=== PATIENT | female | born 1965 | race Caucasian/White ===

== ENCOUNTER 2021-02-14 17:23 | Inpatient (IN) | payer BC ==
[~2021-02-14] VITALS: Ht 177.8 cm; Wt 139.0 kg
[2021-02-15 00:34] LABS: RED BLOOD COUNT 4.08 M/UL (4.00-5.10); WHITE BLOOD COUNT 7.9 K/UL (4.5-11.0)
[2021-02-15 01:01] LABS: BUN/CREATININE RATIO 22 (0-10)
--- NOTE | 2021-02-15 02:30 | NUR ---
0030 ORDERS RECEIVED FROM KATTY TO PARALYZE AND PRONE PT, ALSO CVL PLACEMENT. NIKKO AHMADI REPORTS HE "DOESN'T DO THOSE." CALLED ER PHYSICIAN. ER MD TO BEDSIDE TO ATTEMPT PLACEMENT. CVL CONSENT PLACED ON CHART. TELEPHONE CONSENT RECEIVED FROM . 0100 MULTIPLE ATTEMPTS BY ER MD FOR CVL PLACEMENT. UNABLE TO PLACE. 0125 DR GOMEZ CALLED IN FOR CVL PLACEMENT. RIJ CVL PLACED SUCCESSFULLY. CXR OBTAINED. VERBAL OKAY TO USE CVL PER DR GOMEZ.
[2021-02-15] MEDS ORDERED: LEXAPRO20 MG PO (14:59)
[2021-02-15] MEDS ORDERED: PROTONIX40 MG PO (14:59)
[2021-02-15] MEDS ORDERED: FLOVENT 110 MC7.9 GM INH (14:59)
[2021-02-15] MEDS ORDERED: LEVOTHYROXINE88 MCG PO (15:00)
[2021-02-15] MEDS ORDERED: LISINOPRIL10 MG PO (15:00)
--- NOTE | 2021-02-15 22:39 | NUR ---
2200 RT AND MULTIPLE RNs AT BEDSIDE. PT UNPRONED.
[2021-02-16 04:52] LABS: RED BLOOD COUNT 4.14 M/UL (4.00-5.10)
[2021-02-16 04:54] LABS: WHITE BLOOD COUNT 10.7 K/UL (4.5-11.0)
[2021-02-16 05:42] LABS: BUN/CREATININE RATIO 34 (0-10)
[2021-02-17 05:28] LABS: HEMOGLOBIN 12.5 gm/dl (12.3-15.3); RED BLOOD COUNT 4.27 M/UL (4.00-5.10)
[2021-02-17 05:31] LABS: WHITE BLOOD COUNT 14.7 K/UL (4.5-11.0)
[2021-02-17 05:53] LABS: BUN/CREATININE RATIO 45 (0-10)
[2021-02-18 05:39] LABS: HEMOGLOBIN 12.8 gm/dl (12.3-15.3); RED BLOOD COUNT 4.4 M/UL (4.00-5.10); WHITE BLOOD COUNT 17.7 K/UL (4.5-11.0)
[2021-02-18 06:16] LABS: BUN/CREATININE RATIO 48 (0-10)
[2021-02-19 04:54] LABS: HEMOGLOBIN 12.3 gm/dl (12.3-15.3); RED BLOOD COUNT 4.23 M/UL (4.00-5.10); WHITE BLOOD COUNT 13.7 K/UL (4.5-11.0)
[2021-02-19 05:23] LABS: BUN/CREATININE RATIO 45 (0-10)
[2021-02-20 05:33] LABS: HEMOGLOBIN 12.9 gm/dl (12.3-15.3); RED BLOOD COUNT 4.45 M/UL (4.00-5.10); WHITE BLOOD COUNT 15.6 K/UL (4.5-11.0)
[2021-02-20 05:52] LABS: BUN/CREATININE RATIO 55 (0-10)
[2021-02-21 04:52] LABS: HEMOGLOBIN 12.2 gm/dl (12.3-15.3); RED BLOOD COUNT 4.2 M/UL (4.00-5.10); WHITE BLOOD COUNT 15.8 K/UL (4.5-11.0)
[2021-02-21 05:34] LABS: BUN/CREATININE RATIO 53 (0-10)
[2021-02-22 05:48] LABS: HEMOGLOBIN 12.7 gm/dl (12.3-15.3); RED BLOOD COUNT 4.45 M/UL (4.00-5.10); WHITE BLOOD COUNT 17.9 K/UL (4.5-11.0)
[2021-02-22 06:06] LABS: BUN/CREATININE RATIO 58 (0-10)
[2021-02-23 05:18] LABS: HEMOGLOBIN 12.1 gm/dl (12.3-15.3); RED BLOOD COUNT 4.15 M/UL (4.00-5.10)
[2021-02-23 05:23] LABS: WHITE BLOOD COUNT 11.4 K/UL (4.5-11.0)
[2021-02-23 05:42] LABS: BUN/CREATININE RATIO 61 (0-10)
[2021-02-24 05:02] LABS: HEMOGLOBIN 11.7 gm/dl (12.3-15.3); RED BLOOD COUNT 4.02 M/UL (4.00-5.10); WHITE BLOOD COUNT 10.7 K/UL (4.5-11.0)
[2021-02-24 05:33] LABS: BUN/CREATININE RATIO 72 (0-10)
[2021-02-25 05:08] LABS: HEMOGLOBIN 11.9 gm/dl (12.3-15.3); RED BLOOD COUNT 4.06 M/UL (4.00-5.10); WHITE BLOOD COUNT 10.7 K/UL (4.5-11.0)
[2021-02-25 05:38] LABS: BUN/CREATININE RATIO 66 (0-10)
[2021-02-26 06:11] LABS: HEMOGLOBIN 10.7 gm/dl (12.3-15.3); RED BLOOD COUNT 3.76 M/UL (4.00-5.10); WHITE BLOOD COUNT 11.1 K/UL (4.5-11.0)
[2021-02-26 06:36] LABS: BUN/CREATININE RATIO 59 (0-10)
[2021-02-27 06:25] LABS: BUN/CREATININE RATIO 60 (0-10)
[2021-02-27 06:30] LABS: HEMOGLOBIN 13.2 gm/dl (12.3-15.3); RED BLOOD COUNT 4.45 M/UL (4.00-5.10); WHITE BLOOD COUNT 17.4 K/UL (4.5-11.0)
[2021-02-28 04:49] LABS: HEMOGLOBIN 12.9 gm/dl (12.3-15.3); RED BLOOD COUNT 4.33 M/UL (4.00-5.10); WHITE BLOOD COUNT 16.8 K/UL (4.5-11.0)
[2021-02-28 05:14] LABS: BUN/CREATININE RATIO 50 (0-10)
[2021-02-28 10:08] LABS: ADENOVIRUS F 40/41 Not Detected (Negative); ASTROVIRUS Not Detected (Negative); CAMPYLOBACTER Not Detected (Negative); CLOSTRIDIUM DIFFICILE TOX A/B Not Detected (Negative); CRYPTOSPORIDIUM Not Detected (Negative); E.COLI 0157 Not Detected (Negative); ENTAMOEBA HISTOLYTICA Not Detected (Negative); ENTEROAGGREGATIVE E.COLI (EAEC Not Detected (Negative); ENTEROPATHOGENIC E.COLI (EPEC) Not Detected (Negative); ENTEROTOXIGENIC E.COLI (ETEC) Not Detected (Negative); GIARDIA LAMBLIA Not Detected (Negative); NOROVIRUS GI/GII Not Detected (Negative); PLESIOMONAS SHIGELLOIDES Not Detected (Negative); ROTOVIRUS A Not Detected (Negative); SALMONELLA Not Detected (Negative); SAPOVIRUS Not Detected (Negative); SHIG/ENTEROINVAS.ECOLI (EIEC) Not Detected (Negative); SHIGA-LIK TOX.PRO.E.COLI (STEC Not Detected (Negative); VIBRIO Not Detected (Negative); VIBRIO CHOLERAE Not Detected (Negative); YERSINIA ENTEROCOLITICA Not Detected (Negative)
[2021-03-01 04:43] LABS: HEMOGLOBIN 13.5 gm/dl (12.3-15.3); RED BLOOD COUNT 4.52 M/UL (4.00-5.10)
[2021-03-01 05:10] LABS: BUN/CREATININE RATIO 56 (0-10)
[2021-03-02 04:51] LABS: HEMOGLOBIN 12.7 gm/dl (12.3-15.3); RED BLOOD COUNT 4.32 M/UL (4.00-5.10)
[2021-03-02 05:14] LABS: BUN/CREATININE RATIO 60 (0-10)
[2021-03-03 05:13] LABS: HEMOGLOBIN 12.3 gm/dl (12.3-15.3); RED BLOOD COUNT 4.13 M/UL (4.00-5.10); WHITE BLOOD COUNT 14.3 K/UL (4.5-11.0)
[2021-03-03 05:29] LABS: BUN/CREATININE RATIO 53 (0-10)
[2021-03-04 05:45] LABS: HEMOGLOBIN 11.8 gm/dl (12.3-15.3); RED BLOOD COUNT 3.96 M/UL (4.00-5.10); WHITE BLOOD COUNT 13.6 K/UL (4.5-11.0)
[2021-03-04 06:13] LABS: BUN/CREATININE RATIO 44 (0-10)
[2021-03-05 06:32] LABS: HEMOGLOBIN 12.1 gm/dl (12.3-15.3); RED BLOOD COUNT 4.05 M/UL (4.00-5.10); WHITE BLOOD COUNT 12.7 K/UL (4.5-11.0)
[2021-03-05 07:14] LABS: BUN/CREATININE RATIO 49 (0-10)
[2021-03-06 09:37] LABS: HEMOGLOBIN 13.5 gm/dl (12.3-15.3); RED BLOOD COUNT 4.43 M/UL (4.00-5.10); WHITE BLOOD COUNT 10.8 K/UL (4.5-11.0)
[2021-03-06 10:05] LABS: BUN/CREATININE RATIO 48 (0-10)
[2021-03-07 05:44] LABS: HEMOGLOBIN 11.5 gm/dl (12.3-15.3); RED BLOOD COUNT 3.88 M/UL (4.00-5.10); WHITE BLOOD COUNT 16.6 K/UL (4.5-11.0)
[2021-03-07 05:54] LABS: BUN/CREATININE RATIO 49 (0-10)
[2021-03-08 05:15] LABS: HEMOGLOBIN 10.3 gm/dl (12.3-15.3); WHITE BLOOD COUNT 13.3 K/UL (4.5-11.0)
[2021-03-08 05:16] LABS: RED BLOOD COUNT 3.45 M/UL (4.00-5.10)
[2021-03-08 05:35] LABS: BUN/CREATININE RATIO 51 (0-10)
[2021-03-09 05:56] LABS: BUN/CREATININE RATIO 36 (0-10)
[2021-03-09 08:53] LABS: HEMOGLOBIN 10.5 gm/dl (12.3-15.3); RED BLOOD COUNT 3.53 M/UL (4.00-5.10)
--- NOTE | 2021-03-11 13:12 | NUR ---
AT THIS TIME PT IS AT HER MAX WITH PRESSORS ZULEMA 300, VASO 2.4, LEVOPHED 30, 1150 LOW BP NOTED SEE V/S CHARTED , FAMILY AT BEDSIDE AT ARE AWARE OF HER CONDITION AND THAT SHE IS MAXED OUT ON HER PRESSORS, I REPORTED THE TO DR HINES WHO IS AT THE DESK , ALSO DR WILSON PULMONARY WHO HAS ALREADY TALKED TO THE FAMILY THIS MORNING ABOUT HER CRITICAL CONDITION, PT NOT TOLERATING POSITION CHANGING, AT 1158 PT HAD EPISODE OF ELENO CARDIA SUDDENLY INTO THE 30S WE HAD CRASH CART AT BEDSIDE AND MOTHER CAME OUT OF HER ROOM AND GOT DR WILSON , NOT ABLE TO GET A PULSE SO DR WILSON STARTED CPR , FAMILY AT BEDSIDE, MEDS AND CPR GIVEN, AT 1210 DR HINES CALLED THE CODE PER FAMILY REQUEST , SEE CODE SHEET
--- NOTE | 2021-03-11 15:05 | NUR ---
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
[2021-03-12 05:11] LABS: HEMOGLOBIN 11.4 gm/dl (12.3-15.3); RED BLOOD COUNT 3.86 M/UL (4.00-5.10); WHITE BLOOD COUNT 12.7 K/UL (4.5-11.0)
[2021-03-12 05:48] LABS: BUN/CREATININE RATIO 44 (0-10)
[2021-03-14 11:55] LABS: HEMOGLOBIN 11.9 gm/dl (12.3-15.3); RED BLOOD COUNT 3.99 M/UL (4.00-5.10); WHITE BLOOD COUNT 13.2 K/UL (4.5-11.0)
[2021-03-15 08:34] LABS: HEMOGLOBIN 11.9 gm/dl (12.3-15.3); RED BLOOD COUNT 3.99 M/UL (4.00-5.10)
[2021-03-15 08:35] LABS: WHITE BLOOD COUNT 17.7 K/UL (4.5-11.0)
[2021-03-15 08:49] LABS: BUN/CREATININE RATIO 41 (0-10)
[2021-03-15 17:09] LABS: HEMOGLOBIN 11.9 gm/dl (12.3-15.3); RED BLOOD COUNT 4.07 M/UL (4.00-5.10); WHITE BLOOD COUNT 17.2 K/UL (4.5-11.0)
[2021-03-16 09:40] LABS: HEMOGLOBIN 10.7 gm/dl (12.3-15.3); RED BLOOD COUNT 3.69 M/UL (4.00-5.10); WHITE BLOOD COUNT 13.1 K/UL (4.5-11.0)
[2021-03-17 06:08] LABS: RED BLOOD COUNT 3.77 M/UL (4.00-5.10); WHITE BLOOD COUNT 12.4 K/UL (4.5-11.0)
[2021-03-17 06:41] LABS: BUN/CREATININE RATIO 37 (0-10)
--- NOTE | 2021-03-17 23:43 | NUR ---
03/17/212199 PT WAS HAVING TROUBLE BREATHING, RT KATHY WAS AT BEDSIDE WHEN PT DESAT TO 50% AND WAS ELENO IN THE 40'S. BEGAN TO BAG AND LAVAGE PT AT THIS TIME AND LARGE THICK BLOOD TINGED MUCOS PLUG WAS REMOVED AND FIO2 WAS INCREASED TO 80%. TRACH CARE WAS THEN PERFORMED WITH RT AT BEDSIDE. 2235-DR EL CALLED ABOUT CHANGE IN PT CONDITION AND HR 155 AND PT VERY ANXIOUS. MD ORDERED LOPRESSOR 5MG IVP AND OK TO GIVE ATIVAN 2MGIVP FOR ANXIETY. PT HAS LOPRESSOR LISTED ALLERGY BUT SAYS NOT A TRUE ALLEGY THAT "JUST DOSENT WORK FOR HER" SISTER ON PHONE ALSO SAYS SHE DOSENT KNOW OF A LOPRESSOR ALLERGY. 2299- DR ALVARADO AND DR. EL AT BEDSIDE TO ASSESS PT. HR [address] ALVARADO ORDERED TO GIVE CARDIZED 10MG IVP. 2338- CHANGE IN RYTHYM TO AFIB WITH RVR. CALLED DR. EL AND ORDERED EKG AND START CARDIZEM GTT PER PROTOCOL WITHOUT BOLUS. 2349-CARDIZEM GTT STARTED AT 5MG/HR. 2354-SISTER STILL ON FACETIME AND GIVEN UPDATE OF PT CONDITION.
[2021-03-18 08:18] LABS: BUN/CREATININE RATIO 29 (0-10)
[2021-03-18 10:31] LABS: HEMOGLOBIN 10.7 gm/dl (12.3-15.3); RED BLOOD COUNT 3.67 M/UL (4.00-5.10)
[2021-03-18 10:35] LABS: WHITE BLOOD COUNT 24.3 K/UL (4.5-11.0)
[2021-03-18 12:40] LABS: HEMOGLOBIN 11.1 gm/dl (12.3-15.3); RED BLOOD COUNT 3.75 M/UL (4.00-5.10)
[2021-03-18 15:56] LABS: HEMOGLOBIN 11.2 gm/dl (12.3-15.3); RED BLOOD COUNT 3.79 M/UL (4.00-5.10); WHITE BLOOD COUNT 26.6 K/UL (4.5-11.0)
[2021-03-18 16:22] LABS: BUN/CREATININE RATIO 31 (0-10)
[2021-03-19 06:59] LABS: HEMOGLOBIN 9.6 gm/dl (12.3-15.3)
[2021-03-19 07:10] LABS: RED BLOOD COUNT 3.3 M/UL (4.00-5.10); WHITE BLOOD COUNT 16.6 K/UL (4.5-11.0)
[2021-03-19 07:11] LABS: BUN/CREATININE RATIO 32 (0-10)
[2021-03-19 10:38] LABS: HEMOGLOBIN 9.3 gm/dl (12.3-15.3); RED BLOOD COUNT 3.16 M/UL (4.00-5.10); WHITE BLOOD COUNT 16.3 K/UL (4.5-11.0)
[2021-03-20 18:14] LABS: HEPARIN INDUCED PLATELET AB 0.155 OD (0.000-0.400)
[2021-03-22 15:13] LABS: GLYCOPROTEIN IV ANTIBODY Negative (Negative); HLA CLASS 1 ANTIBODY Negative (Negative); IA/IIA ANTIBODY Negative (Negative); IB/IX ANTIBODY Negative (Negative); IIB/IIIA ANTIBODY Negative (Negative)
== END 2021-03-19 15:41 | disposition expired | DRG 4 ==
LOC: CCU 17:23
PROVIDERS: Internal Medicine; Internal Medicine Critical Care Medicine; Internal Medicine Infectious Disease; Internal Medicine Pulmonary Disease; ADMIT Internal Medicine
PROC: 5A1955Z Respiratory Ventilation, Greater than 96 Consecutive Hours (ICD-10-PCS; 2021-02-15)
PROC: XW033E5 Introduction of Remdesivir Anti-infective into Peripheral Vein, Percutaneous Approach, New Technology Group 5 (ICD-10-PCS; 2021-02-15)
PROC: 8E0ZXY6 Isolation (ICD-10-PCS; 2021-02-15)
PROC: 3E0333Z Introduction of Anti-inflammatory into Peripheral Vein, Percutaneous Approach (ICD-10-PCS; 2021-02-15)
PROC: 02HV33Z Insertion of Infusion Device into Superior Vena Cava, Percutaneous Approach (ICD-10-PCS; 2021-02-15)
PROC: 3E033XZ Introduction of Vasopressor into Peripheral Vein, Percutaneous Approach (ICD-10-PCS; 2021-02-17)
PROC: 0B113F4 Bypass Trachea to Cutaneous with Tracheostomy Device, Percutaneous Approach (ICD-10-PCS; 2021-02-27)
PROC: 0DH63UZ Insertion of Feeding Device into Stomach, Percutaneous Approach (ICD-10-PCS; 2021-02-27)
PROC: 0BJ08ZZ Inspection of Tracheobronchial Tree, Via Natural or Artificial Opening Endoscopic (ICD-10-PCS; principal; 2021-03-18)
PROC: 0B21XFZ Change Tracheostomy Device in Trachea, External Approach (ICD-10-PCS; 2021-03-18)
DX: A41.89 Other specified sepsis (principal); U07.1 COVID-19; J12.82 Pneumonia due to coronavirus disease 2019; R65.21 Severe sepsis with septic shock; J80 Acute respiratory distress syndrome; J15.9 Unspecified bacterial pneumonia; J15.1 Pneumonia due to Pseudomonas; I48.20 Chronic atrial fibrillation, unspecified; Z68.42 Body mass index [BMI] 45.0-49.9, adult; D69.3 Immune thrombocytopenic purpura; J95.830 Postprocedural hemorrhage of a respiratory system organ or structure following a respiratory system procedure; E66.01 Morbid (severe) obesity due to excess calories; E78.5 Hyperlipidemia, unspecified; Z66 Do not resuscitate; K21.9 Gastro-esophageal reflux disease without esophagitis; E03.9 Hypothyroidism, unspecified; D50.9 Iron deficiency anemia, unspecified; I10 Essential (primary) hypertension; J04.10 Acute tracheitis without obstruction; R19.7 Diarrhea, unspecified; Z99.81 Dependence on supplemental oxygen; L89.622 Pressure ulcer of left heel, stage 2; L89.316 Pressure-induced deep tissue damage of right buttock; L89.611 Pressure ulcer of right heel, stage 1; T17.990A Other foreign object in respiratory tract, part unspecified in causing asphyxiation, initial encounter; Z88.8 Allergy status to other drugs, medicaments and biological substances; Z98.890 Other specified postprocedural states; Z90.89 Acquired absence of other organs; Z88.2 Allergy status to sulfonamides; Z88.5 Allergy status to narcotic agent; Z91.040 Latex allergy status; Z87.891 Personal history of nicotine dependence; F41.9 Anxiety disorder, unspecified; Z51.5 Encounter for palliative care
CPT/HCPCS: 36415; 36430; 36600; 71045; 74018; 80048; 80053; 80202; 81001; 82550; 82553; 82607; 82728; 82746; 82803; 82962; 83540; 83550; 83605; 83615; 83735; 83880; 84100; 84478; 84484; 85007; 85025; 85027; 85379; 85384; 85610; 85730; 86140; 86850; 86900; 86901; 87040; 87070; 87077; 87081; 87086; 87186; 87205; 87507; 92526; 92610; 93005; 93308; 94002; 94003; 94640; 94760; 97110; 97110-GP-CQ; 97163; 97167; 97530; 97530-GP-CQ; A6212; C1769; C9113; J0171; J0360; J0461; J0692; J0696; J1100; J1580; J1650; J1940; J1956; J2020; J2060; J2185; J2248; J2250; J2370; J2405; J2543; J2704; J2930; J2997; J3010; J3370; J3475; J7030; J7040; J7050; J7070; J7120; P9035; P9037